=== PATIENT | female | born 1995 | race Caucasian/White ===

== ENCOUNTER → 2019-01-06 | Outpatient (CLI) | payer BC ==
[~2019-01-06] MED LIST: NORCO 325 MG-51 TAB PO; ZOFRAN 4MG T4 MG/TAB PO
[2019-01-06 14:43] LABS: BASO % 0.3 % (0.0-2.0); EOS # 0.1 (0.0-0.7); EOS % 0.9 % (0-4.0); GRAN # 6.5 (1.4-6.5); GRAN % 71.9 % (42.2-75.2); HEMOGLOBIN 11.4 g/dl (12.5-16.0); LYMPH # 1.6 (1.2-3.4); LYMPH % 17.6 % (20.0-51.0); MEAN CELL VOLUME 92 fl (80.0-100.0); MEAN CORPUSCULAR HEMOGLOBIN 29 pg (27.0-31.0); MEAN CORPUSCULAR HGB CONC 32 g/dl (33.0-37.0); MEAN PLATELET VOLUME 9.5 fl (7.4-10.4); MONO # 0.8 (0.1-0.6); MONO % 8.7 % (1.7-9.3); PLATELET COUNT 522 K/mm3 (130-400); REDCELL DISTRIBUTION WIDTH-CV 12.2 % (11.5-14.5)
[2019-01-06 15:06] LABS: ERYTHROCYTE SEDIMENTATION RATE 84 mm/hr (0-20)
[2019-01-06 15:22] LABS: HEMATOCRIT 35.7 % (37.0-47.0)
[2019-01-06 22:58] LABS: RHEUMATOID FACTOR-SCREEN <15 IU/mL (0-29)
== END ==
LOC: COL.LAB 13:49
PROVIDERS: Orthopaedic Surgery
DX: M25.461 Effusion, right knee (principal)

== ENCOUNTER → 2019-01-11 | Outpatient (CLI) | payer BC ==
[2019-01-11 19:31] LABS: SYNOVIAL FL. MONONUCLEAR 45.7 % (0-75); SYNOVIAL FLUID RBC 17000 /mm3 (0-0); SYNOVIAL FLUID WBC 3369 /mm3 (200-600)
[2019-01-11 19:58] LABS: SYNOVIAL FLUID COLOR PINK
[2019-01-11 19:59] LABS: SYNOVIAL FLUID APPEARANCE TURBID
== END ==
LOC: ZCOL.LAB 17:20
PROVIDERS: Orthopaedic Surgery
DX: Z01.89 Encounter for other specified special examinations (principal)

== ENCOUNTER 2023-12-28 21:43 | Outpatient (CLI) | payer SELFPAY ==
[~2023-12-28] VITALS: Ht 167.6 cm; Wt 92.4 kg
[2023-12-28 22:15] VITALS: BP 157/94; PULSE 69; TEMP 97.7
[2023-12-28] MEDS ORDERED: Acetaminophen 500 MG TAB PO ONE (22:15)
[2023-12-28] MEDS ORDERED: LR 1,000 ML IV PRN (22:15)
[2023-12-28] MEDS ORDERED: PRENATAL TABLET PO (22:40)
[2023-12-28 22:45] VITALS: BP 155/91; PULSE 71
== END 2023-12-28 23:00 | disposition home or self-care (01) ==
LOC: LDRO 21:43
DX: O99.891 Other specified diseases and conditions complicating pregnancy (principal); M54.9 Dorsalgia, unspecified; Z3A.38 38 weeks gestation of pregnancy